=== PATIENT | female | born 1980 | race Caucasian/White ===

== ENCOUNTER 2016-09-06 00:27 | Emergency (ER) | payer OTHER ==
--- NOTE | 2016-09-06 00:31 | ED GI/GU/ABDOMINAL COMPLAINT ---
History of Present Illness General Chief Complaint: Abdominal Pain/Flank Pain Stated Complaint: ABD PAIN Source: patient Exam Limitations: no limitations Past History Travel History Traveled to [place] past 21 day No Departure Departure Condition: Stable Referrals: JAY SORIANO MD (PCP/Family) Departure Forms: Customer Survey General Discharge Information
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
[2016-09-06 03:27] VITALS: BP 128/69
[2016-09-06 04:06] LABS: ABSOLUTE BASOPHIL COUNT 0 /CUMM (0.0-0.2); ABSOLUTE EOSINOPHIL COUNT 0.2 /CUMM (0.0-0.7); ABSOLUTE GRANULOCYTE CT 5.4 /CUMM (1.4-6.5); ABSOLUTE LYMPH COUNT 1.5 /CUMM (1.2-3.4); ABSOLUTE MONOCYTE COUNT 0.6 /CUMM (0.10-0.60); BASOPHIL % 0.4 % (0.0-2.0); EOSINOPHIL % 2.1 % (0-5); GRANULOCYTE % 70.4 % (42.2-75.2); HEMATOCRIT 39.6 % (37-47); MEAN CORPUSCULAR HGB 30.7 PG (27.0-31.0); MEAN CORPUSCULAR HGB CONC 32.8 G/DL (33.0-37.0); MEAN CORPUSCULAR VOLUME 93.7 FL (81.0-99.0); MEAN PLATELET VOLUME 6.7 FL (7.4-10.4); PLATELET COUNT 317 /CUMM (130-400); RBC DISTRIBUTION WIDTH 12.9 % (11.5-14.5); RED BLOOD CELL CT 4.23 /CUMM (4.20-5.40); WHITE BLOOD CELL COUNT 7.7 /CUMM (4.8-10.8)
--- NOTE | 2016-09-06 04:15 | CT SCAN REPORT ---
EXAMINATION: CT ABDOMEN AND PELVIS WITHOUT CONTRAST CLINICAL INFORMATION: Lower abdominal pain radiating to the back. COMPARISON: None TECHNIQUE: Multidetector volumetric imaging was performed from the superior aspect of the liver through the pubic symphysis. Sagittal and coronal reformatted images were obtained on the technologist's workstation. DLP: 264 mGy-cm FINDINGS: LUNG BASES: The visualized lung bases are unremarkable. LIVER, GALLBLADDER, AND BILIARY TREE: The liver is normal in size, shape, and attenuation. No focal hepatic lesion or biliary ductal dilatation is present. The gallbladder is unremarkable with no evidence of radiopaque gallstones, gallbladder wall thickening, or obvious pericholecystic inflammatory changes. PANCREAS: Unremarkable. SPLEEN: Unremarkable. ADRENAL GLANDS: Unremarkable. KIDNEYS AND URETERS: The kidneys are normal in size, shape, and attenuation. No hydronephrosis, hydroureter, or calculi seen. No perinephric stranding. BLADDER: Decompressed with no gross abnormality. GASTROINTESTINAL TRACT: The stomach and small bowel are unremarkable. No dilated loops of bowel or evidence of obstruction. Fecalization of the distal ileum suggests slow transit. There is stool seen throughout the colon with overall moderate colonic stool burden. No wall thickening or inflammatory changes. No free air or free fluid. ABDOMINAL WALL: No significant hernia is appreciated. LYMPH NODES: Normal. VASCULAR: Unremarkable. PELVIC VISCERA: The uterus and adnexa are unremarkable. OSSEOUS STRUCTURES: Slight wedge deformity of the T11 vertebral body with minimal degenerative changes. No acute or suspicious osseous abnormality. IMPRESSION: No acute inflammatory changes of the abdomen or pelvis. No hydronephrosis or nephrolithiasis. No adnexal mass. Moderate colonic stool burden.
== END 2016-09-06 07:27 ==
LOC: ERH 00:27
PROVIDERS: Emergency Medicine
DX: R10.32 Left lower quadrant pain (principal); R10.31 Right lower quadrant pain
CPT/HCPCS: 74176; 80307; 81001; 96372

== ENCOUNTER 2016-09-06 11:11 | Emergency (ER) | payer OTHER ==
[~2016-09-06] VITALS: Ht 154.9 cm; Wt 52.2 kg
--- NOTE | 2016-09-06 12:54 | ED GI/GU/ABDOMINAL COMPLAINT ---
History of Present Illness General Chief Complaint: Female Urogenital Problems Stated Complaint: PT IS HAVING FEMALE PAIN Source: patient, old records, [facility], [facility] visit 03/11 for abdominal pain, signed out because of inadequate analgesia refusing CT scan Exam Limitations: no limitations Vital Signs & Intake/Output Vital Signs & Intake/Output Vital Signs Date Time Temp Pulse Resp B/P Pulse O2 O2 Flow FiO2 Ox Delivery Rate 09/06 1343 97.9 79 20 150/89 99 Room Air 09/06 1324 Room Air 09/06 1119 97.5 89 20 122/86 97 Room Air Allergies Coded Allergies: codeine (RASH 09/06/16) diphenhydramine (From BENADRYL) (RASH 09/06/16) quetiapine (From SEROQUEL) (UNKNOWN 09/06/16) shellfish derived (RASH 09/06/16) acetaminophen (From TYLENOL) (Severe, HX ULCERS 09/06/16) ibuprofen (From MOTRIN) (Severe, HX ULCERS 09/06/16) Triage Note: PT TO ED C/O ABD PAIN. PT WAS SEEN IN ED EARLIER THIS AM FOR SAME AND NOTHING WAS FOUND. PT WAS PROVIDED BREAKFAST TRAY AFTER DISCHARGE PER HER REQUEST AND PT NOW STATING SHE VOMITED AFTER EATING. DENIES S/S. Triage Nurses Notes Reviewed? yes LMP (ages 10-50): ended yesterday ? n Is pt currently ? No Onset: 3 days Duration: day(s):, constant, continues in ED Timing: recent history Quality/Severity: aching, severe, vomiting Location: left lower quadrant, right lower quadrant Radiation: back Activities at Onset: rest Prior Abdominal Problems: similar symptoms Past Sexual History: Unobtainable at this time Modifying Factors: Worsens With: movement, palpation. Associated Symptoms: abdominal pain, loss of appetite, nausea/vomiting HPI: Patient reports history of lupus rheumatoid arthritis fibromyalgia asthma and appendectomy right oophorectomy ovarian cysts. 3 days prior to admission she complains of right lower quadrant pain Scratching moderate to severe associated with nausea anorexia loss appetite radiating to left lower quadrant and bilateral flank. She denies fever chills chest pain cough shortness of breath headache dysuria rash bleeding. She was seen earlier in the day with negative workup. She was found to multiple identities/alias. She reports she was newly and transferred from [place]. Review of [facility] shows 4-5 forms of Suzan Alejandra with the same birthdate. Over the last 10 days she has been to [facility] x 2, [facility] x 2 and [facility] for psychiatry med refill. She has received Dilaudid 34 tabs over this time period. Past History Travel History Traveled to [place] past 21 day No Medical History Any Pertinent Medical History? see below for history Neurological: NONE EENT: NONE Cardiovascular: NONE Respiratory: NONE Gastrointestinal: NONE Hepatic: NONE Renal: NONE Musculoskeletal: NONE, fibromyalgia, rheumatoid arthritis Psychiatric: NONE Endocrine: NONE Blood Disorders: NONE Cancer(s): NONE PAINT TESTER/Reproductive: RUPTURED OVARIAN CYSTS Other Medical Hx: lupus Surgical History Surgical History: appendectomy, right ovarian cystectomy, BTL Psychosocial History What is your primary language Kyrgyz Tobacco Use: Never used ETOH Use: denies use Illicit Drug Use: denies illicit drug use Family History Hx Contributory? No Review of Systems Review of Systems Constitutional: Reports: see HPI, weakness. EENTM: Reports: no symptoms. Respiratory: Reports: no symptoms. Cardiovascular: Reports: no symptoms. GI: Reports: see HPI, abdominal pain, nausea, vomiting. Genitourinary: Reports: see HPI, pain. Musculoskeletal: Reports: no symptoms. Skin: Reports: no symptoms. Neurological/Psychological: Reports: no symptoms. Hematologic/Endocrine: Reports: no symptoms. Immunologic/Allergic: Reports: no symptoms. All Other Systems: Reviewed and Negative Physical Exam Physical Exam General Appearance: well developed/nourished, alert, awake, anxious, mild distress, thin Head: atraumatic, normal appearance Eyes: Bilateral: normal appearance, PERRL, EOMI, normal inspection. Ears, Nose, Throat, Mouth: hearing grossly normal, moist mucous membrane Neck: normal inspection, supple, full range of motion, normal alignment Respiratory: normal breath sounds, chest non-tender, no respiratory distress, quiet respiration, lungs clear Cardiovascular: regular rate/rhythm, normal peripheral pulses, norml femoral pulses equa Peripheral Pulses: 4+ carotid (R), 4+ carotid (L) Gastrointestinal: normal bowel sounds, soft, guarding (voluntary), tenderness ( BLQ), 4 hematomas noted on lower abdominal wall patient reports from heparin injections appearing 7-10 days old Back: normal inspection, normal range of motion Extremities: normal range of motion, no ligament instability Neurologic/Psych: no motor/sensory deficits, awake, alert, oriented x 3, normal gait, normal mood/affect Skin: intact, normal color, warm/dry Core Measures ACS in differential dx? Yes Severe Sepsis Present: Yes Septic Shock Present: Yes Progress Differential Diagnosis: endometritis, ovarian cyst, ovarian torsion Plan of Care: Orders Procedure Date/time Status US-TRANSVAGINAL 09/06 1221 Active Diagnostic Imaging: Viewed by Me: Ultrasound. Discussed w/RAD: Ultrasound. Radiology Impression: The right ovary is apparently surgically absent. There is a normal-sized left ovary with color signal and vascular spectra present. This essentially excludes torsion. No suspicious adnexal mass Initial ED EKG: none Departure Departure Time of Disposition: 1400 Disposition: HOME OR SELF CARE Condition: Stable Clinical Impression Primary Impression: Abdominal pain in female Referrals: SONAL GIFFORD,EMERALD Healy Call for rheumatology follow up JAY SORIANO MD (PCP/Family) ANAHY GIFFORD,SUKHDEEP Chowdhury Call for pain management follow up ANDREW FONG MD,MELISSA Call for gynecology follow up Departure Forms: General Discharge Information
[2016-09-06 13:43] VITALS: BP 150/89
--- NOTE | 2016-09-06 13:44 | ULTRASOUND REPORT ---
EXAMINATION: US TRANSVAGINAL CLINICAL INFORMATION: Pelvic pain. History of cysts. Clinical concern for torsion COMPARISON: None TECHNIQUE: Transcutaneous pelvic ultrasound. In an effort to better characterize the endometrium and adnexa as well as guide color mapping the patient was asked to void completely and reexamined vaginally Color mapping and spectral analysis of the adnexa were performed. FINDINGS: Uterus is anteverted. The uterus measures 7.9 x 4.4 x 4.7 cm. The cervix measures approximately 3.3 cm in length. There is a trace amount of fluid in the lower cervical canal. The cervix is otherwise within normal limits. The endometrium is smooth and homogeneous. The endometrium measures 0.5 cm which is within normal limits. There is no abnormality within the myometrium. The uterine contour is smooth. The right ovary is not demonstrated. Reportedly the patient is post right oophorectomy in 2011. The left ovary measures approximately 2.4 x 2.1 x 3.3 cm. The estimated left ovarian volume is 9 mL. There are small cysts within the left ovary all of which measure less than 2 cm in diameter. Color mapping demonstrates flow within the left ovary. Spectral analysis confirms arterial and venous waveforms within the left ovary. No significant free pelvic fluid IMPRESSION: The right ovary is apparently surgically absent. There is a normal-sized left ovary with color signal and vascular spectra present. This essentially excludes torsion. No suspicious adnexal mass
== END 2016-09-06 14:12 ==
LOC: ERH 11:11
DX: R10.31 Right lower quadrant pain (principal)
CPT/HCPCS: 74176; 80307; 81001; 96372; J3101